=== PATIENT | female | born 1940 | race Caucasian/White ===

== ENCOUNTER 2021-08-07 13:07 | Inpatient (IN) ==
[2021-08-07] MEDS ORDERED: ACETAMINOPHEN 325 MG TABLET PO PRN (13:23)
[2021-08-07] MEDS ORDERED: ONDANSETRON 4 MG/2 ML VIAL IV PRN (13:23)
[2021-08-07] MEDS ORDERED: MAGNESIUM HYDROXIDE SUSP 30 ML UDCUP PO PRN (13:25)
[2021-08-07] MEDS ORDERED: BENZONATATE 100 MG CAPSULE PO PRN (13:30)
[2021-08-07] MEDS ORDERED: ZALEPLON 5 MG CAPSULE PO PRN (13:30)
[2021-08-07] MEDS ORDERED: FUROSEMIDE 20 MG/2 ML VIAL IV SCH (16:00)
[2021-08-07] MEDS: ALBUTEROL/IPRATROPIUM 3 ML NEB RESP TX SCH ×3 (17:49→23:23)
[2021-08-07 17:57] LABS: Basophils % 0.5 % (0.0-0.8); Eosinophils % 0.2 % (0.00-10.9); Hematocrit 44.5 VOL% (35.7-47.0); Hemoglobin 13.6 GM/DL (12.0-16.0); Immature Granulocytes % 0.3 %; Immature Granulocytes Absolute 0.02 #; Lymphocytes % 16.9 % (21.3-54.2); Mean Corpuscular HGB Conc 30.6 GM/DL (32-36); Mean Corpuscular Volume 90.6 FL (87-102); Mean Platelet Volume 9.6 FL (9.6-12.0); Monocytes % 8.9 % (1.7-12.7); Neutrophils % 73.2 % (38.7-73.9); Platelet Count 204 T/CUMM (130-400); Red Blood Count 4.91 MC/CUMM (3.8-5.5); Red Cell Distribution Width 16.5 % (9.3-17.3); White Blood Count 6.1 T/CUMM (4-12)
[2021-08-07 18:12] LABS: Bilirubin,Total 1.4 MG/DL (0.20-1.00); Calcium 8.9 MG/DL (8.5-10.1); Osmolality,Calculated 266.5 MOS/KG (273-304); Potassium 3.9 MMOL/L (3.5-5.1); Total Protein 7.1 G/DL (6.4-8.2)
[2021-08-07] MEDS: DOCUSATE SODIUM 100 MG CAPSULE PO SCH (20:55)
[2021-08-07] MEDS: methylPREDNISolone SOD SUC 40 MG/1 ML VIAL IV SCH (20:56)
[2021-08-07] MEDS: FUROSEMIDE 20 MG/2 ML VIAL IV SCH (20:57)
[2021-08-07] MEDS: ENOXAPARIN 40 MG/0.4 ML SYRINGE SUBCUT SCH (20:57)
[2021-08-07] MEDS: DEXTROSE 5% NACL 0.45% 1,000 ML IV SCH (21:01)
[2021-08-07] MEDS: BUDESONIDE/FORMOTEROL 160-4.5 INHALER 6 GM INH SCH (21:01)
[2021-08-07] MEDS: BISOPROLOL 5 MG TABLET PO SCH (21:39)
[2021-08-08] MEDS: ALBUTEROL/IPRATROPIUM 3 ML NEB RESP TX SCH ×5 (04:00→19:27)
[2021-08-08 04:58] LABS: Basophils % 0.2 % (0.0-0.8); Hematocrit 39.9 VOL% (35.7-47.0); Hemoglobin 12.8 GM/DL (12.0-16.0); Immature Granulocytes % 0.4 %; Immature Granulocytes Absolute 0.02 #; Lymphocytes # 0.6 10*3/uL (1.4-4.0); Lymphocytes % 12.7 % (21.3-54.2); Mean Corpuscular HGB Conc 32.1 GM/DL (32-36); Mean Corpuscular Volume 87.3 FL (87-102); Mean Platelet Volume 9.7 FL (9.6-12.0); Monocytes % 2.7 % (1.7-12.7); Platelet Count 186 T/CUMM (130-400); Red Blood Count 4.57 MC/CUMM (3.8-5.5); Red Cell Distribution Width 16.2 % (9.3-17.3); White Blood Count 4.5 T/CUMM (4-12)
[2021-08-08 05:31] LABS: Albumin 2.7 G/DL (3.4-5.0); Bilirubin,Total 1.3 MG/DL (0.20-1.00); Calcium 8.5 MG/DL (8.5-10.1); Osmolality,Calculated 270.4 MOS/KG (273-304); Potassium 4.1 MMOL/L (3.5-5.1); Risk Ratio 3.75; Total Protein 6.4 G/DL (6.4-8.2)
[2021-08-08 05:55] LABS: Bacteria,Urine Occasional /HPF (Few); Bilirubin,Urine Negative (Negative); Blood, Urine Negative (Negative); Glucose,Urine (UA) Negative (Negative); Hyaline Casts,Urine 1 /LPF (0-3); Ketones,Urine Negative (Negative); Nitrite,Urine Negative (Negative); Protein,Urine Negative; RBC,Urine 1 /HPF (0-4); Squamous Epithelial Cell,Urine Occasional /HPF (0-10); Urine Appearance CLEAR (Clear); Urine Color Yellow (Yellow); Urine Specific Gravity 1.028 (1.001-1.035); Urine Urobilinogen < 2.0 EU/DL (0.2-1.0)
[2021-08-08] MEDS: methylPREDNISolone SOD SUC 40 MG/1 ML VIAL IV SCH ×3 (06:04→20:26)
[2021-08-08] MEDS: PANTOPRAZOLE 40 MG TABLET PO SCH (08:19)
[2021-08-08] MEDS: PROPRANOLOL 40 MG TABLET PO SCH (08:19)
[2021-08-08] MEDS: DOCUSATE SODIUM 100 MG CAPSULE PO SCH ×2 (08:19→20:25)
[2021-08-08] MEDS: CLOPIDOGREL 75 MG TABLET PO SCH (08:19)
[2021-08-08] MEDS: SPIRONOLACTONE 25 MG TABLET PO SCH ×3 (08:20→20:28)
[2021-08-08] MEDS: BUDESONIDE/FORMOTEROL 160-4.5 INHALER 6 GM INH SCH ×2 (08:24→20:29)
[2021-08-08] MEDS: FUROSEMIDE 20 MG/2 ML VIAL IV SCH (12:39)
[2021-08-08] MEDS: FUROSEMIDE 40 MG/4 ML VIAL IV SCH (16:27)
[2021-08-08] MEDS: BISOPROLOL 5 MG TABLET PO SCH (20:26)
[2021-08-08] MEDS: ENOXAPARIN 40 MG/0.4 ML SYRINGE SUBCUT SCH (20:26)
[2021-08-09] MEDS: ALBUTEROL/IPRATROPIUM 3 ML NEB RESP TX SCH ×8 (03:15→23:30)
[2021-08-09 05:23] LABS: Hematocrit 35.2 VOL% (35.7-47.0); Hemoglobin 11.3 GM/DL (12.0-16.0); Immature Granulocytes % 0.6 %; Immature Granulocytes Absolute 0.04 #; Lymphocytes # 0.6 10*3/uL (1.4-4.0); Lymphocytes % 8.2 % (21.3-54.2); Mean Corpuscular HGB Conc 32.1 GM/DL (32-36); Mean Corpuscular Volume 86.1 FL (87-102); Mean Platelet Volume 9.9 FL (9.6-12.0); Monocytes % 4.9 % (1.7-12.7); Neutrophils % 86.3 % (38.7-73.9); Platelet Count 183 T/CUMM (130-400); Red Blood Count 4.09 MC/CUMM (3.8-5.5); Red Cell Distribution Width 16.1 % (9.3-17.3); White Blood Count 6.8 T/CUMM (4-12)
[2021-08-09 05:52] LABS: Albumin 2.7 G/DL (3.4-5.0); Bilirubin,Total 1.1 MG/DL (0.20-1.00); Calcium 8.4 MG/DL (8.5-10.1); Osmolality,Calculated 265.7 MOS/KG (273-304); Potassium 3.8 MMOL/L (3.5-5.1); Total Protein 6.3 G/DL (6.4-8.2)
[2021-08-09] MEDS: methylPREDNISolone SOD SUC 40 MG/1 ML VIAL IV SCH ×3 (06:44→21:16)
[2021-08-09] MEDS: FUROSEMIDE 40 MG/4 ML VIAL IV SCH ×2 (09:27→15:56)
[2021-08-09] MEDS: BUDESONIDE/FORMOTEROL 160-4.5 INHALER 6 GM INH SCH ×2 (09:29→21:16)
[2021-08-09] MEDS: PANTOPRAZOLE 40 MG TABLET PO SCH (09:29)
[2021-08-09] MEDS: SPIRONOLACTONE 25 MG TABLET PO SCH ×3 (09:29→21:16)
[2021-08-09] MEDS: PROPRANOLOL 40 MG TABLET PO SCH (09:29)
[2021-08-09] MEDS: CLOPIDOGREL 75 MG TABLET PO SCH (09:29)
[2021-08-09] MEDS: TAMSULOSIN 0.4 MG CAPSULE PO SCH (09:29)
[2021-08-09] MEDS: DOCUSATE SODIUM 100 MG CAPSULE PO SCH ×2 (09:29→21:18)
[2021-08-09] MEDS: ENOXAPARIN 60 MG/0.6 ML SYRINGE SUBCUT SCH ×2 (09:38→21:17)
[2021-08-09] MEDS: NICOTINE 21 MG/24 HR PATCH TRANSDERM SCH (12:03)
[2021-08-09] MEDS: DEXTROSE 5% NACL 0.45% 1,000 ML IV SCH (18:34)
[2021-08-09] MEDS: BISOPROLOL 5 MG TABLET PO SCH (21:16)
[2021-08-10] MEDS: ALBUTEROL/IPRATROPIUM 3 ML NEB RESP TX SCH ×5 (04:01→20:48)
[2021-08-10] MEDS: methylPREDNISolone SOD SUC 40 MG/1 ML VIAL IV SCH ×3 (04:52→21:06)
[2021-08-10] MEDS: NICOTINE 21 MG/24 HR PATCH TRANSDERM SCH ×2 (04:53→09:17)
[2021-08-10 05:45] LABS: Hematocrit 36.4 VOL% (35.7-47.0); Hemoglobin 11.6 GM/DL (12.0-16.0); Immature Granulocytes % 0.8 %; Immature Granulocytes Absolute 0.06 #; Lymphocytes # 0.4 10*3/uL (1.4-4.0); Lymphocytes % 5.5 % (21.3-54.2); Mean Corpuscular HGB Conc 31.9 GM/DL (32-36); Mean Corpuscular Volume 86.5 FL (87-102); Monocytes % 4.4 % (1.7-12.7); Neutrophils % 89.3 % (38.7-73.9); Platelet Count 202 T/CUMM (130-400); Red Blood Count 4.21 MC/CUMM (3.8-5.5); Red Cell Distribution Width 16.2 % (9.3-17.3); White Blood Count 7.8 T/CUMM (4-12)
[2021-08-10 06:06] LABS: Calcium 8.4 MG/DL (8.5-10.1); Osmolality,Calculated 268.5 MOS/KG (273-304); Potassium 3.4 MMOL/L (3.5-5.1)
[2021-08-10] MEDS: FUROSEMIDE 40 MG/4 ML VIAL IV SCH ×2 (08:25→16:33)
[2021-08-10] MEDS: PANTOPRAZOLE 40 MG TABLET PO SCH (08:30)
[2021-08-10] MEDS: CLOPIDOGREL 75 MG TABLET PO SCH (08:30)
[2021-08-10] MEDS: DOCUSATE SODIUM 100 MG CAPSULE PO SCH ×2 (08:30→21:07)
[2021-08-10] MEDS: ENOXAPARIN 60 MG/0.6 ML SYRINGE SUBCUT SCH ×2 (08:30→21:06)
[2021-08-10] MEDS: PROPRANOLOL 40 MG TABLET PO SCH (08:30)
[2021-08-10] MEDS: SPIRONOLACTONE 25 MG TABLET PO SCH ×3 (08:30→21:05)
[2021-08-10] MEDS: BUDESONIDE/FORMOTEROL 160-4.5 INHALER 6 GM INH SCH ×2 (08:38→21:07)
[2021-08-10] MEDS: TAMSULOSIN 0.4 MG CAPSULE PO SCH (09:19)
[2021-08-10] MEDS ORDERED: LACTULOSE 20 GM/30 ML UDCUP PO ONE (14:08)
[2021-08-10] MEDS: NYSTATIN 500,000 UNIT/5 ML UDCUP SWISH/SWAL SCH ×2 (14:48→21:06)
[2021-08-10] MEDS ORDERED: POTASSIUM CHLORIDE 20 MEQ TABLET PO ONE (17:21)
[2021-08-10] MEDS: BISOPROLOL 5 MG TABLET PO SCH (18:08)
[2021-08-10] MEDS: POTASSIUM CHLORIDE 20 MEQ TABLET PO PRN (21:05)
[2021-08-10] MEDS: LACTULOSE 20 GM/30 ML UDCUP PO SCH (21:05)
[2021-08-11] MEDS: ALBUTEROL/IPRATROPIUM 3 ML NEB RESP TX SCH ×7 (00:35→23:05)
[2021-08-11] MEDS: methylPREDNISolone SOD SUC 40 MG/1 ML VIAL IV SCH ×3 (05:25→20:39)
[2021-08-11 06:27] LABS: Basophils % 0.1 % (0.0-0.8); Hemoglobin 11.9 GM/DL (12.0-16.0); Immature Granulocytes % 0.5 %; Immature Granulocytes Absolute 0.04 #; Lymphocytes # 0.4 10*3/uL (1.4-4.0); Lymphocytes % 4.9 % (21.3-54.2); Mean Corpuscular HGB Conc 32.2 GM/DL (32-36); Mean Corpuscular Volume 88.3 FL (87-102); Mean Platelet Volume 9.5 FL (9.6-12.0); Monocytes % 6.2 % (1.7-12.7); Neutrophils % 88.3 % (38.7-73.9); Platelet Count 194 T/CUMM (130-400); Red Blood Count 4.19 MC/CUMM (3.8-5.5); White Blood Count 7.4 T/CUMM (4-12)
[2021-08-11 06:53] LABS: Calcium 8.5 MG/DL (8.5-10.1); Osmolality,Calculated 273.4 MOS/KG (273-304); Potassium 3.5 MMOL/L (3.5-5.1)
[2021-08-11 07:32] LABS: Anisocytosis 2+; Lymphocytes 5 % (20-55); Platelet Estimate Normal; Segmented Neutrophils 88 % (50-85); Total Cells Counted 100
[2021-08-11 07:34] LABS: Poikilocytosis Slight
[2021-08-11] MEDS: FUROSEMIDE 40 MG/4 ML VIAL IV SCH ×2 (09:01→15:35)
[2021-08-11] MEDS: PANTOPRAZOLE 40 MG TABLET PO SCH (09:03)
[2021-08-11] MEDS: SPIRONOLACTONE 25 MG TABLET PO SCH ×3 (09:03→20:37)
[2021-08-11] MEDS: TAMSULOSIN 0.4 MG CAPSULE PO SCH (09:03)
[2021-08-11] MEDS: PROPRANOLOL 40 MG TABLET PO SCH (09:03)
[2021-08-11] MEDS: POTASSIUM CHLORIDE 20 MEQ TABLET PO PRN ×2 (09:03→13:12)
[2021-08-11] MEDS: CLOPIDOGREL 75 MG TABLET PO SCH (09:03)
[2021-08-11] MEDS: LACTULOSE 20 GM/30 ML UDCUP PO SCH ×2 (09:04→21:56)
[2021-08-11] MEDS: ENOXAPARIN 60 MG/0.6 ML SYRINGE SUBCUT SCH ×2 (09:04→20:39)
[2021-08-11] MEDS: NYSTATIN 500,000 UNIT/5 ML UDCUP SWISH/SWAL SCH ×4 (09:04→20:38)
[2021-08-11] MEDS: BUDESONIDE/FORMOTEROL 160-4.5 INHALER 6 GM INH SCH ×2 (09:05→21:56)
[2021-08-11] MEDS: DOCUSATE SODIUM 100 MG CAPSULE PO SCH ×2 (09:06→21:56)
[2021-08-11] MEDS: NICOTINE 21 MG/24 HR PATCH TRANSDERM SCH (09:06)
[2021-08-11] MEDS: BISOPROLOL 5 MG TABLET PO SCH (18:14)
[2021-08-12] MEDS: ALBUTEROL/IPRATROPIUM 3 ML NEB RESP TX SCH ×7 (03:05→23:10)
[2021-08-12] MEDS: methylPREDNISolone SOD SUC 40 MG/1 ML VIAL IV SCH ×3 (04:23→21:16)
[2021-08-12 05:22] LABS: Basophils % 0.1 % (0.0-0.8); Hematocrit 38.1 VOL% (35.7-47.0); Hemoglobin 12.1 GM/DL (12.0-16.0); Immature Granulocytes % 0.7 %; Immature Granulocytes Absolute 0.05 #; Lymphocytes # 0.4 10*3/uL (1.4-4.0); Lymphocytes % 6.3 % (21.3-54.2); Mean Corpuscular HGB Conc 31.8 GM/DL (32-36); Mean Corpuscular Volume 87.6 FL (87-102); Monocytes % 6.8 % (1.7-12.7); Neutrophils % 86.1 % (38.7-73.9); Platelet Count 188 T/CUMM (130-400); Red Blood Count 4.35 MC/CUMM (3.8-5.5); Red Cell Distribution Width 15.9 % (9.3-17.3)
[2021-08-12 05:39] LABS: Calcium 8.8 MG/DL (8.5-10.1); Osmolality,Calculated 268.7 MOS/KG (273-304); Potassium 4.3 MMOL/L (3.5-5.1)
[2021-08-12] MEDS: FUROSEMIDE 40 MG/4 ML VIAL IV SCH ×2 (11:01→18:39)
[2021-08-12] MEDS: ENOXAPARIN 60 MG/0.6 ML SYRINGE SUBCUT SCH ×2 (11:02→21:16)
[2021-08-12] MEDS: TAMSULOSIN 0.4 MG CAPSULE PO SCH (11:02)
[2021-08-12] MEDS: NICOTINE 21 MG/24 HR PATCH TRANSDERM SCH (11:02)
[2021-08-12] MEDS: PROPRANOLOL 40 MG TABLET PO SCH (11:02)
[2021-08-12] MEDS: CLOPIDOGREL 75 MG TABLET PO SCH (11:03)
[2021-08-12] MEDS: NYSTATIN 500,000 UNIT/5 ML UDCUP SWISH/SWAL SCH ×4 (11:03→21:15)
[2021-08-12] MEDS: SPIRONOLACTONE 25 MG TABLET PO SCH ×3 (11:03→21:15)
[2021-08-12] MEDS: PANTOPRAZOLE 40 MG TABLET PO SCH (11:04)
[2021-08-12] MEDS: LACTULOSE 20 GM/30 ML UDCUP PO SCH ×2 (11:43→21:44)
[2021-08-12] MEDS: DOCUSATE SODIUM 100 MG CAPSULE PO SCH ×2 (11:43→21:44)
[2021-08-12] MEDS: BUDESONIDE/FORMOTEROL 160-4.5 INHALER 6 GM INH SCH ×2 (11:43→21:44)
[2021-08-12] MEDS: BISOPROLOL 5 MG TABLET PO SCH (21:15)
[2021-08-13] MEDS: ALBUTEROL/IPRATROPIUM 3 ML NEB RESP TX SCH ×2 (03:08→07:18)
[2021-08-13] MEDS: methylPREDNISolone SOD SUC 40 MG/1 ML VIAL IV SCH (04:10)
[2021-08-13 05:15] LABS: Basophils % 0.1 % (0.0-0.8); Hematocrit 36.6 VOL% (35.7-47.0); Hemoglobin 11.8 GM/DL (12.0-16.0); Immature Granulocytes % 0.6 %; Immature Granulocytes Absolute 0.04 #; Lymphocytes # 0.5 10*3/uL (1.4-4.0); Lymphocytes % 7.3 % (21.3-54.2); Mean Corpuscular HGB Conc 32.2 GM/DL (32-36); Mean Corpuscular Volume 87.6 FL (87-102); Mean Platelet Volume 9.8 FL (9.6-12.0); Monocytes % 5.7 % (1.7-12.7); Neutrophils % 86.3 % (38.7-73.9); Platelet Count 187 T/CUMM (130-400); Red Blood Count 4.18 MC/CUMM (3.8-5.5); Red Cell Distribution Width 15.9 % (9.3-17.3); White Blood Count 7.1 T/CUMM (4-12)
[2021-08-13 05:42] LABS: Calcium 8.3 MG/DL (8.5-10.1); Osmolality,Calculated 270.5 MOS/KG (273-304); Potassium 3.6 MMOL/L (3.5-5.1)
[2021-08-13] MEDS ORDERED: CHOLECALCIFEROL 1,000 UNIT TABLET PO SCH (09:00)
[2021-08-13] MEDS ORDERED: TAMSULOSIN 0.4 MG CAPSULE PO SCH (09:00)
[2021-08-13] MEDS: PROPRANOLOL 40 MG TABLET PO SCH (09:19)
[2021-08-13] MEDS: NICOTINE 21 MG/24 HR PATCH TRANSDERM SCH (09:19)
[2021-08-13] MEDS: SPIRONOLACTONE 25 MG TABLET PO SCH (09:19)
[2021-08-13] MEDS: CLOPIDOGREL 75 MG TABLET PO SCH (09:20)
[2021-08-13] MEDS: NYSTATIN 500,000 UNIT/5 ML UDCUP SWISH/SWAL SCH (09:20)
[2021-08-13] MEDS: FUROSEMIDE 40 MG/4 ML VIAL IV SCH (09:20)
[2021-08-13] MEDS: ENOXAPARIN 60 MG/0.6 ML SYRINGE SUBCUT SCH (09:20)
[2021-08-13] MEDS: PANTOPRAZOLE 40 MG TABLET PO SCH (09:20)
[2021-08-13] MEDS: LACTULOSE 20 GM/30 ML UDCUP PO SCH (09:28)
[2021-08-13] MEDS: DOCUSATE SODIUM 100 MG CAPSULE PO SCH (09:28)
[2021-08-13] MEDS: BUDESONIDE/FORMOTEROL 160-4.5 INHALER 6 GM INH SCH (09:28)
[2021-08-13 10:37] VITALS: BP 120/77
== END 2021-08-13 11:09 | disposition home or self-care (01) | DRG 190 ==
LOC: N.4E 15:29
PROVIDERS: ADMIT Family Medicine; ATTEND Family Medicine

== ENCOUNTER 2021-09-26 08:44 | Inpatient (IN) ==
[2021-09-26] MEDS ORDERED: ONDANSETRON 4 MG/2 ML VIAL IV PRN (13:20)
[2021-09-26] MEDS ORDERED: ACETAMINOPHEN 325 MG TABLET PO PRN (13:20)
[2021-09-26] MEDS ORDERED: MAGNESIUM HYDROXIDE SUSP 30 ML UDCUP PO PRN (13:24)
[2021-09-26 15:36] LABS: Bacteria,Urine Occasional /HPF (Few); Bilirubin,Urine Negative (Negative); Blood, Urine Negative (Negative); Glucose,Urine (UA) Negative (Negative); Hyaline Casts,Urine 1 /LPF (0-3); Ketones,Urine Negative (Negative); Mucus,Urine Occasional /LPF (Occasional); Nitrite,Urine Negative (Negative); Protein,Urine 100 MG/DL; RBC,Urine 1 /HPF (0-4); Squamous Epithelial Cell,Urine Occasional /HPF (0-10); Urine Appearance CLEAR (Clear); Urine Color Amber (Yellow); Urine Specific Gravity 1.023 (1.001-1.035)
[2021-09-26 15:43] LABS: Basophils % 0.4 % (0.0-0.8); Eosinophils % 0.2 % (0.00-10.9); Hematocrit 39.6 VOL% (35.7-47.0); Hemoglobin 12.1 GM/DL (12.0-16.0); Immature Granulocytes % 0.7 %; Immature Granulocytes Absolute 0.03 #; Lymphocytes # 0.8 10*3/uL (1.4-4.0); Lymphocytes % 17.2 % (21.3-54.2); Mean Corpuscular HGB Conc 30.6 GM/DL (32-36); Mean Platelet Volume 9.3 FL (9.6-12.0); Monocytes % 11.1 % (1.7-12.7); Neutrophils % 70.4 % (38.7-73.9); Platelet Count 214 T/CUMM (130-400); Red Blood Count 4.55 MC/CUMM (3.8-5.5); Red Cell Distribution Width 17.3 % (9.3-17.3); White Blood Count 4.6 T/CUMM (4-12)
[2021-09-26 16:06] LABS: Albumin 3.1 G/DL (3.4-5.0); Bilirubin,Total 1.6 MG/DL (0.20-1.00); Calcium 8.7 MG/DL (8.5-10.1); Osmolality,Calculated 268.2 MOS/KG (273-304); Potassium 4.2 MMOL/L (3.5-5.1)
[2021-09-26] MEDS: PANTOPRAZOLE 40 MG TABLET PO SCH (16:23)
[2021-09-26] MEDS: SPIRONOLACTONE 25 MG TABLET PO SCH ×2 (16:23→22:27)
[2021-09-26 16:49] LABS: Hepatitis B Core IgM Quant 0.06 Index; Hepatitis B Surface Ag Quant < 0.10 Index; Hepatitis B Surface Ag Result Non-Reactive (NonReactive); Hepatitis C Virus Ab Quant 0.04 Index; Hepatitis C Virus Ab Result Non-Reactive (NonReactive)
[2021-09-26] MEDS: DEXTROSE 5% NACL 0.45% 1,000 ML IV SCH (17:17)
[2021-09-26] MEDS: ALBUTEROL/IPRATROPIUM 3 ML NEB RESP TX SCH (20:34)
[2021-09-26] MEDS: DOCUSATE SODIUM 100 MG CAPSULE PO SCH (22:27)
[2021-09-26] MEDS: APIXABAN 2.5 MG TABLET PO SCH (22:27)
[2021-09-26] MEDS: TAMSULOSIN 0.4 MG CAPSULE PO SCH (22:27)
[2021-09-26] MEDS: PROPRANOLOL 40 MG TABLET PO SCH (22:28)
[2021-09-26] MEDS: BUDESONIDE/FORMOTEROL 160-4.5 INHALER 6 GM INH SCH (22:30)
[2021-09-27] MEDS: ALBUTEROL/IPRATROPIUM 3 ML NEB RESP TX SCH ×4 (01:31→19:59)
[2021-09-27] MEDS: DEXTROSE 5% NACL 0.45% 1,000 ML IV SCH ×2 (03:55→15:10)
[2021-09-27 06:40] LABS: Calcium 8.2 MG/DL (8.5-10.1); Osmolality,Calculated 263.5 MOS/KG (273-304); Potassium 4.1 MMOL/L (3.5-5.1)
[2021-09-27] MEDS: BUDESONIDE/FORMOTEROL 160-4.5 INHALER 6 GM INH SCH ×3 (06:45→22:07)
[2021-09-27] MEDS: SPIRONOLACTONE 25 MG TABLET PO SCH (06:45)
[2021-09-27] MEDS ORDERED: ZALEPLON 5 MG CAPSULE PO PRN (07:47)
[2021-09-27] MEDS ORDERED: BISOPROLOL 5 MG TABLET PO SCH (09:00)
[2021-09-27] MEDS ORDERED: ASPIRIN EC 81 MG TABLET PO SCH (09:00)
[2021-09-27] MEDS: PANTOPRAZOLE 40 MG TABLET PO SCH (09:26)
[2021-09-27] MEDS: DOCUSATE SODIUM 100 MG CAPSULE PO SCH ×3 (09:27→22:07)
[2021-09-27] MEDS: ATORVASTATIN 40 MG TABLET PO SCH (09:27)
[2021-09-27] MEDS: CLOPIDOGREL 75 MG TABLET PO SCH (09:27)
[2021-09-27] MEDS: TAMSULOSIN 0.4 MG CAPSULE PO SCH ×2 (09:28→22:02)
[2021-09-27] MEDS: SPIRONOLACTONE 50 MG TABLET PO SCH ×4 (09:28→22:17)
[2021-09-27] MEDS: PROPRANOLOL 40 MG TABLET PO SCH ×3 (09:28→22:18)
[2021-09-27] MEDS: APIXABAN 2.5 MG TABLET PO SCH ×2 (09:29→22:02)
[2021-09-28] MEDS: ALBUTEROL/IPRATROPIUM 3 ML NEB RESP TX SCH ×4 (00:15→19:55)
[2021-09-28 06:05] LABS: Basophils % 0.6 % (0.0-0.8); Eosinophils % 0.6 % (0.00-10.9); Hematocrit 34.9 VOL% (35.7-47.0); Hemoglobin 10.9 GM/DL (12.0-16.0); Immature Granulocytes % 0.8 %; Immature Granulocytes Absolute 0.04 #; Lymphocytes # 1.2 10*3/uL (1.4-4.0); Lymphocytes % 22.7 % (21.3-54.2); Mean Corpuscular HGB Conc 31.2 GM/DL (32-36); Mean Corpuscular Volume 85.7 FL (87-102); Mean Platelet Volume 9.2 FL (9.6-12.0); Monocytes % 10.4 % (1.7-12.7); Neutrophils % 64.9 % (38.7-73.9); Platelet Count 184 T/CUMM (130-400); Red Blood Count 4.07 MC/CUMM (3.8-5.5); Red Cell Distribution Width 17.3 % (9.3-17.3); White Blood Count 5.2 T/CUMM (4-12)
[2021-09-28 06:38] LABS: Calcium 8.5 MG/DL (8.5-10.1); Osmolality,Calculated 261.5 MOS/KG (273-304); Potassium 4.3 MMOL/L (3.5-5.1)
[2021-09-28] MEDS: DOCUSATE SODIUM 100 MG CAPSULE PO SCH ×2 (09:52→21:22)
[2021-09-28] MEDS: PANTOPRAZOLE 40 MG TABLET PO SCH (09:55)
[2021-09-28] MEDS: TAMSULOSIN 0.4 MG CAPSULE PO SCH ×2 (09:55→21:23)
[2021-09-28] MEDS: PROPRANOLOL 40 MG TABLET PO SCH ×3 (09:55→21:23)
[2021-09-28] MEDS: DEXTROSE 5% NACL 0.45% 1,000 ML IV SCH (09:55)
[2021-09-28] MEDS: SPIRONOLACTONE 50 MG TABLET PO SCH ×3 (09:55→21:28)
[2021-09-28] MEDS: BUDESONIDE/FORMOTEROL 160-4.5 INHALER 6 GM INH SCH ×2 (09:56→21:26)
[2021-09-28] MEDS: CLOPIDOGREL 75 MG TABLET PO SCH ×2 (10:25→21:25)
[2021-09-28] MEDS: ATORVASTATIN 40 MG TABLET PO SCH ×2 (10:25→21:25)
[2021-09-28] MEDS: APIXABAN 2.5 MG TABLET PO SCH (11:32)
[2021-09-28] MEDS: FUROSEMIDE 40 MG/4 ML VIAL IV SCH (18:20)
[2021-09-29] MEDS: ALBUTEROL/IPRATROPIUM 3 ML NEB RESP TX SCH ×4 (00:17→19:51)
[2021-09-29 04:49] LABS: Basophils % 0.4 % (0.0-0.8); Eosinophils % 0.4 % (0.00-10.9); Hematocrit 35.3 VOL% (35.7-47.0); Hemoglobin 10.9 GM/DL (12.0-16.0); Immature Granulocytes % 0.4 %; Immature Granulocytes Absolute 0.02 #; Lymphocytes # 1.2 10*3/uL (1.4-4.0); Lymphocytes % 20.8 % (21.3-54.2); Mean Corpuscular HGB Conc 30.9 GM/DL (32-36); Mean Corpuscular Volume 84.7 FL (87-102); Mean Platelet Volume 9.4 FL (9.6-12.0); Monocytes % 11.8 % (1.7-12.7); Neutrophils % 66.2 % (38.7-73.9); Platelet Count 201 T/CUMM (130-400); Red Blood Count 4.17 MC/CUMM (3.8-5.5); Red Cell Distribution Width 17.2 % (9.3-17.3); White Blood Count 5.5 T/CUMM (4-12)
[2021-09-29 04:58] LABS: Calcium 8.6 MG/DL (8.5-10.1); Osmolality,Calculated 258.8 MOS/KG (273-304); Potassium 4.1 MMOL/L (3.5-5.1)
[2021-09-29] MEDS: FUROSEMIDE 40 MG/4 ML VIAL IV SCH (09:17)
[2021-09-29] MEDS: DOCUSATE SODIUM 100 MG CAPSULE PO SCH ×2 (11:30→21:14)
[2021-09-29] MEDS: TAMSULOSIN 0.4 MG CAPSULE PO SCH ×2 (11:30→21:15)
[2021-09-29] MEDS: SPIRONOLACTONE 50 MG TABLET PO SCH ×2 (11:30→16:14)
[2021-09-29] MEDS: PANTOPRAZOLE 40 MG TABLET PO SCH (11:31)
[2021-09-29] MEDS: BUDESONIDE/FORMOTEROL 160-4.5 INHALER 6 GM INH SCH (11:31)
[2021-09-29] MEDS: PROPRANOLOL 40 MG TABLET PO SCH ×2 (11:31→16:14)
[2021-09-29] MEDS: ATORVASTATIN 40 MG TABLET PO SCH (22:56)
[2021-09-30] MEDS: SPIRONOLACTONE 50 MG TABLET PO SCH ×4 (01:22→20:56)
[2021-09-30] MEDS: CLOPIDOGREL 75 MG TABLET PO SCH ×2 (01:24→20:56)
[2021-09-30] MEDS: PROPRANOLOL 40 MG TABLET PO SCH ×4 (01:24→20:56)
[2021-09-30] MEDS: ALBUTEROL/IPRATROPIUM 3 ML NEB RESP TX SCH ×4 (02:18→19:42)
[2021-09-30] MEDS: BUDESONIDE/FORMOTEROL 160-4.5 INHALER 6 GM INH SCH ×3 (05:28→21:05)
[2021-09-30 06:12] LABS: Basophils % 0.6 % (0.0-0.8); Eosinophils % 0.8 % (0.00-10.9); Hematocrit 34.6 VOL% (35.7-47.0); Hemoglobin 10.6 GM/DL (12.0-16.0); Immature Granulocytes Absolute 0.05 #; Lymphocytes % 18.5 % (21.3-54.2); Mean Corpuscular HGB Conc 30.6 GM/DL (32-36); Mean Platelet Volume 9.3 FL (9.6-12.0); Monocytes % 11.7 % (1.7-12.7); Neutrophils % 67.4 % (38.7-73.9); Platelet Count 178 T/CUMM (130-400); Red Blood Count 4.07 MC/CUMM (3.8-5.5); Red Cell Distribution Width 17.3 % (9.3-17.3); White Blood Count 5.2 T/CUMM (4-12)
[2021-09-30 06:21] LABS: INR 1.2; PT Patient Result 13.5 SECS (10.5-12.0)
[2021-09-30 06:42] LABS: Albumin 2.7 G/DL (3.4-5.0); Bilirubin,Direct 0.5 MG/DL (0.0-0.20); Bilirubin,Indirect 1.3 MG/DL (0.0-1.0); Bilirubin,Total 1.8 MG/DL (0.20-1.00); Calcium 8.6 MG/DL (8.5-10.1); Osmolality,Calculated 263.5 MOS/KG (273-304); Potassium 3.8 MMOL/L (3.5-5.1); Total Protein 6.2 G/DL (6.4-8.2)
[2021-09-30] MEDS: TAMSULOSIN 0.4 MG CAPSULE PO SCH ×2 (08:50→20:56)
[2021-09-30] MEDS: DOCUSATE SODIUM 100 MG CAPSULE PO SCH ×2 (08:50→21:05)
[2021-09-30] MEDS: PANTOPRAZOLE 40 MG TABLET PO SCH (08:51)
[2021-09-30] MEDS: FUROSEMIDE 40 MG/4 ML VIAL IV SCH (08:56)
[2021-09-30] MEDS: ATORVASTATIN 40 MG TABLET PO SCH (20:56)
[2021-10-01] MEDS: ALBUTEROL/IPRATROPIUM 3 ML NEB RESP TX SCH ×4 (00:30→19:18)
[2021-10-01 06:13] LABS: Basophils % 0.6 % (0.0-0.8); Eosinophils % 0.6 % (0.00-10.9); Immature Granulocytes % 0.6 %; Immature Granulocytes Absolute 0.03 #; Lymphocytes # 1.1 10*3/uL (1.4-4.0); Lymphocytes % 21.6 % (21.3-54.2); Mean Corpuscular HGB Conc 31.4 GM/DL (32-36); Mean Platelet Volume 9.4 FL (9.6-12.0); Monocytes % 12.6 % (1.7-12.7); Platelet Count 190 T/CUMM (130-400); Red Blood Count 4.12 MC/CUMM (3.8-5.5); Red Cell Distribution Width 17.5 % (9.3-17.3); White Blood Count 5.2 T/CUMM (4-12)
[2021-10-01 06:42] LABS: Calcium 8.5 MG/DL (8.5-10.1); Osmolality,Calculated 267.2 MOS/KG (273-304); Potassium 4.3 MMOL/L (3.5-5.1)
[2021-10-01] MEDS: SPIRONOLACTONE 50 MG TABLET PO SCH ×3 (09:20→21:29)
[2021-10-01] MEDS: PROPRANOLOL 40 MG TABLET PO SCH ×3 (09:21→21:29)
[2021-10-01] MEDS: PANTOPRAZOLE 40 MG TABLET PO SCH (09:21)
[2021-10-01] MEDS: DOCUSATE SODIUM 100 MG CAPSULE PO SCH ×2 (09:21→23:14)
[2021-10-01] MEDS: FUROSEMIDE 40 MG/4 ML VIAL IV SCH (09:21)
[2021-10-01] MEDS: BUDESONIDE/FORMOTEROL 160-4.5 INHALER 6 GM INH SCH ×2 (12:26→23:14)
[2021-10-01] MEDS: TAMSULOSIN 0.4 MG CAPSULE PO SCH (21:29)
[2021-10-01] MEDS: CLOPIDOGREL 75 MG TABLET PO SCH (23:14)
[2021-10-01] MEDS: ATORVASTATIN 40 MG TABLET PO SCH (23:14)
[2021-10-02] MEDS: ALBUTEROL/IPRATROPIUM 3 ML NEB RESP TX SCH ×4 (00:50→18:52)
[2021-10-02 06:37] LABS: Basophils % 0.6 % (0.0-0.8); Eosinophils # 0.1 10*3/uL (0.0-0.87); Hematocrit 35.7 VOL% (35.7-47.0); Immature Granulocytes % 0.6 %; Immature Granulocytes Absolute 0.03 #; Lymphocytes # 1.3 10*3/uL (1.4-4.0); Lymphocytes % 25.6 % (21.3-54.2); Mean Corpuscular HGB Conc 30.8 GM/DL (32-36); Mean Corpuscular Volume 86.4 FL (87-102); Mean Platelet Volume 9.7 FL (9.6-12.0); Monocytes % 12.3 % (1.7-12.7); Neutrophils % 59.9 % (38.7-73.9); Platelet Count 177 T/CUMM (130-400); Red Blood Count 4.13 MC/CUMM (3.8-5.5); Red Cell Distribution Width 17.4 % (9.3-17.3); White Blood Count 5.1 T/CUMM (4-12)
[2021-10-02 07:08] LABS: Calcium 8.6 MG/DL (8.5-10.1); Osmolality,Calculated 271.1 MOS/KG (273-304); Potassium 3.9 MMOL/L (3.5-5.1)
[2021-10-02] MEDS: FUROSEMIDE 40 MG/4 ML VIAL IV SCH (10:09)
[2021-10-02] MEDS: DOCUSATE SODIUM 100 MG CAPSULE PO SCH ×2 (10:09→21:26)
[2021-10-02] MEDS: PROPRANOLOL 40 MG TABLET PO SCH ×3 (10:09→21:25)
[2021-10-02] MEDS: PANTOPRAZOLE 40 MG TABLET PO SCH (10:10)
[2021-10-02] MEDS: BUDESONIDE/FORMOTEROL 160-4.5 INHALER 6 GM INH SCH ×3 (10:10→21:48)
[2021-10-02] MEDS: SPIRONOLACTONE 50 MG TABLET PO SCH ×3 (10:10→21:26)
[2021-10-02] MEDS ORDERED: BISACODYL 10 MG SUPP RECTAL ONE (11:00)
[2021-10-02] MEDS: PSYLLIUM POWDER 3.7 GM/PACK PO SCH ×2 (12:23→21:25)
[2021-10-02] MEDS: ATORVASTATIN 40 MG TABLET PO SCH (21:26)
[2021-10-02] MEDS: TAMSULOSIN 0.4 MG CAPSULE PO SCH (21:26)
[2021-10-02] MEDS: CLOPIDOGREL 75 MG TABLET PO SCH (21:36)
[2021-10-03] MEDS: ALBUTEROL/IPRATROPIUM 3 ML NEB RESP TX SCH ×4 (00:45→21:10)
[2021-10-03 05:26] LABS: Basophils % 0.6 % (0.0-0.8); Eosinophils # 0.1 10*3/uL (0.0-0.87); Eosinophils % 0.9 % (0.00-10.9); Hematocrit 34.9 VOL% (35.7-47.0); Hemoglobin 10.6 GM/DL (12.0-16.0); Immature Granulocytes % 0.6 %; Immature Granulocytes Absolute 0.03 #; Lymphocytes # 1.3 10*3/uL (1.4-4.0); Lymphocytes % 23.5 % (21.3-54.2); Mean Corpuscular HGB Conc 30.4 GM/DL (32-36); Mean Corpuscular Volume 85.5 FL (87-102); Mean Platelet Volume 9.6 FL (9.6-12.0); Monocytes % 11.1 % (1.7-12.7); Neutrophils % 63.3 % (38.7-73.9); Platelet Count 174 T/CUMM (130-400); Red Blood Count 4.08 MC/CUMM (3.8-5.5); Red Cell Distribution Width 17.4 % (9.3-17.3); White Blood Count 5.3 T/CUMM (4-12)
[2021-10-03 05:51] LABS: Calcium 8.5 MG/DL (8.5-10.1); Osmolality,Calculated 270.2 MOS/KG (273-304); Potassium 3.8 MMOL/L (3.5-5.1)
[2021-10-03] MEDS: PANTOPRAZOLE 40 MG TABLET PO SCH (09:08)
[2021-10-03] MEDS: PROPRANOLOL 40 MG TABLET PO SCH ×3 (09:08→21:52)
[2021-10-03] MEDS: SPIRONOLACTONE 50 MG TABLET PO SCH ×3 (09:08→21:52)
[2021-10-03] MEDS: DOCUSATE SODIUM 100 MG CAPSULE PO SCH ×2 (09:09→21:52)
[2021-10-03] MEDS ORDERED: LIDOCAINE 2% TOP JELLY 20 ML VIAL INTRAURETH ONE (09:12)
[2021-10-03] MEDS: PSYLLIUM POWDER 3.7 GM/PACK PO SCH ×2 (09:13→21:52)
[2021-10-03] MEDS: FUROSEMIDE 40 MG/4 ML VIAL IV SCH (09:17)
[2021-10-03] MEDS: BUDESONIDE/FORMOTEROL 160-4.5 INHALER 6 GM INH SCH ×2 (10:29→22:42)
[2021-10-03] MEDS: ATORVASTATIN 40 MG TABLET PO SCH (21:52)
[2021-10-03] MEDS: TAMSULOSIN 0.4 MG CAPSULE PO SCH (21:52)
[2021-10-04] MEDS: ALBUTEROL/IPRATROPIUM 3 ML NEB RESP TX SCH ×4 (01:25→19:22)
[2021-10-04 05:29] LABS: Hematocrit 35.4 VOL% (35.7-47.0); Hemoglobin 10.8 GM/DL (12.0-16.0); Mean Corpuscular HGB Conc 30.5 GM/DL (32-36); Mean Corpuscular Volume 84.9 FL (87-102); Red Blood Count 4.17 MC/CUMM (3.8-5.5); Red Cell Distribution Width 17.4 % (9.3-17.3); White Blood Count 5.7 T/CUMM (4-12)
[2021-10-04 05:30] LABS: Basophils % 0.5 % (0.0-0.8); Eosinophils # 0.1 10*3/uL (0.0-0.87); Eosinophils % 1.1 % (0.00-10.9); Immature Granulocytes % 1.2 %; Immature Granulocytes Absolute 0.07 #; Lymphocytes # 1.4 10*3/uL (1.4-4.0); Lymphocytes % 24.6 % (21.3-54.2); Monocytes % 11.8 % (1.7-12.7); Neutrophils % 60.8 % (38.7-73.9); Platelet Count 177 T/CUMM (130-400)
[2021-10-04 05:54] LABS: Calcium 8.9 MG/DL (8.5-10.1); Osmolality,Calculated 267.5 MOS/KG (273-304)
[2021-10-04] MEDS: SPIRONOLACTONE 50 MG TABLET PO SCH ×4 (10:44→21:03)
[2021-10-04] MEDS: PROPRANOLOL 40 MG TABLET PO SCH ×4 (10:44→21:03)
[2021-10-04] MEDS: PANTOPRAZOLE 40 MG TABLET PO SCH (10:45)
[2021-10-04] MEDS: DOCUSATE SODIUM 100 MG CAPSULE PO SCH ×2 (10:45→21:04)
[2021-10-04] MEDS: FUROSEMIDE 40 MG/4 ML VIAL IV SCH (10:45)
[2021-10-04] MEDS: PSYLLIUM POWDER 3.7 GM/PACK PO SCH ×2 (10:45→21:04)
[2021-10-04] MEDS: BUDESONIDE/FORMOTEROL 160-4.5 INHALER 6 GM INH SCH ×2 (10:45→21:05)
[2021-10-04] MEDS: NICOTINE 14 MG/24 HR PATCH TRANSDERM SCH (11:56)
[2021-10-04] MEDS: ATORVASTATIN 40 MG TABLET PO SCH (21:03)
[2021-10-04] MEDS: TAMSULOSIN 0.4 MG CAPSULE PO SCH (21:03)
[2021-10-05] MEDS: ALBUTEROL/IPRATROPIUM 3 ML NEB RESP TX SCH ×4 (00:15→19:25)
[2021-10-05 05:35] LABS: Basophils % 0.6 % (0.0-0.8); Eosinophils # 0.1 10*3/uL (0.0-0.87); Eosinophils % 1.2 % (0.00-10.9); Hemoglobin 10.7 GM/DL (12.0-16.0); Immature Granulocytes % 0.6 %; Immature Granulocytes Absolute 0.03 #; Lymphocytes # 1.4 10*3/uL (1.4-4.0); Lymphocytes % 27.6 % (21.3-54.2); Mean Corpuscular HGB Conc 30.6 GM/DL (32-36); Mean Corpuscular Volume 84.7 FL (87-102); Mean Platelet Volume 9.3 FL (9.6-12.0); Monocytes % 11.8 % (1.7-12.7); Neutrophils % 58.2 % (38.7-73.9); Platelet Count 161 T/CUMM (130-400); Red Blood Count 4.13 MC/CUMM (3.8-5.5); Red Cell Distribution Width 17.5 % (9.3-17.3); White Blood Count 5.2 T/CUMM (4-12)
[2021-10-05 05:55] LABS: Albumin 2.9 G/DL (3.4-5.0); Bilirubin,Total 1.2 MG/DL (0.20-1.00); Calcium 8.7 MG/DL (8.5-10.1); Osmolality,Calculated 270.2 MOS/KG (273-304); Potassium 4.1 MMOL/L (3.5-5.1); Total Protein 6.3 G/DL (6.4-8.2)
[2021-10-05] MEDS: PSYLLIUM POWDER 3.7 GM/PACK PO SCH ×2 (08:41→21:43)
[2021-10-05] MEDS: NICOTINE 14 MG/24 HR PATCH TRANSDERM SCH (08:42)
[2021-10-05] MEDS: PANTOPRAZOLE 40 MG TABLET PO SCH (08:42)
[2021-10-05] MEDS: SPIRONOLACTONE 50 MG TABLET PO SCH ×4 (08:42→21:43)
[2021-10-05] MEDS: FUROSEMIDE 40 MG/4 ML VIAL IV SCH (08:44)
[2021-10-05] MEDS: PROPRANOLOL 40 MG TABLET PO SCH ×3 (08:45→21:42)
[2021-10-05] MEDS: BUDESONIDE/FORMOTEROL 160-4.5 INHALER 6 GM INH SCH ×2 (08:45→21:43)
[2021-10-05] MEDS: DOCUSATE SODIUM 100 MG CAPSULE PO SCH ×2 (08:45→21:29)
[2021-10-05] MEDS: ATORVASTATIN 40 MG TABLET PO SCH (21:42)
[2021-10-05] MEDS: TAMSULOSIN 0.4 MG CAPSULE PO SCH (21:42)
[2021-10-06] MEDS: ALBUTEROL/IPRATROPIUM 3 ML NEB RESP TX SCH ×4 (00:25→19:14)
[2021-10-06 05:48] LABS: Basophils % 0.8 % (0.0-0.8); Eosinophils # 0.1 10*3/uL (0.0-0.87); Eosinophils % 1.6 % (0.00-10.9); Hemoglobin 10.2 GM/DL (12.0-16.0); Immature Granulocytes % 0.8 %; Immature Granulocytes Absolute 0.04 #; Lymphocytes # 1.3 10*3/uL (1.4-4.0); Mean Corpuscular Volume 86.1 FL (87-102); Mean Platelet Volume 9.8 FL (9.6-12.0); Monocytes % 14.6 % (1.7-12.7); Neutrophils % 56.2 % (38.7-73.9); Platelet Count 173 T/CUMM (130-400); Red Blood Count 3.95 MC/CUMM (3.8-5.5); Red Cell Distribution Width 17.5 % (9.3-17.3); White Blood Count 5.1 T/CUMM (4-12)
[2021-10-06 06:35] LABS: Hypochromasia 2+; Platelet Estimate Adequate
[2021-10-06] MEDS: PANTOPRAZOLE 40 MG TABLET PO SCH (09:17)
[2021-10-06] MEDS: FUROSEMIDE 40 MG/4 ML VIAL IV SCH (09:18)
[2021-10-06] MEDS: SPIRONOLACTONE 50 MG TABLET PO SCH ×3 (09:18→21:01)
[2021-10-06] MEDS: PROPRANOLOL 40 MG TABLET PO SCH ×3 (09:18→22:59)
[2021-10-06] MEDS: DOCUSATE SODIUM 100 MG CAPSULE PO SCH ×2 (09:19→21:02)
[2021-10-06] MEDS: PSYLLIUM POWDER 3.7 GM/PACK PO SCH ×2 (09:19→21:03)
[2021-10-06] MEDS: BUDESONIDE/FORMOTEROL 160-4.5 INHALER 6 GM INH SCH ×2 (09:20→21:04)
[2021-10-06] MEDS: NICOTINE 14 MG/24 HR PATCH TRANSDERM SCH (09:20)
[2021-10-06] MEDS: ATORVASTATIN 40 MG TABLET PO SCH (21:01)
[2021-10-06] MEDS: TAMSULOSIN 0.4 MG CAPSULE PO SCH (21:02)
[2021-10-07] MEDS: ALBUTEROL/IPRATROPIUM 3 ML NEB RESP TX SCH ×3 (01:33→13:45)
[2021-10-07] MEDS: SPIRONOLACTONE 50 MG TABLET PO SCH (10:39)
[2021-10-07] MEDS: NICOTINE 14 MG/24 HR PATCH TRANSDERM SCH (10:40)
[2021-10-07] MEDS: PROPRANOLOL 40 MG TABLET PO SCH (10:41)
[2021-10-07] MEDS: FUROSEMIDE 40 MG/4 ML VIAL IV SCH (10:41)
[2021-10-07] MEDS: PANTOPRAZOLE 40 MG TABLET PO SCH (10:41)
[2021-10-07] MEDS: BUDESONIDE/FORMOTEROL 160-4.5 INHALER 6 GM INH SCH (10:45)
[2021-10-07] MEDS: DOCUSATE SODIUM 100 MG CAPSULE PO SCH (10:46)
[2021-10-07] MEDS: PSYLLIUM POWDER 3.7 GM/PACK PO SCH (10:46)
[2021-10-07 12:11] VITALS: BP 108/71
== END 2021-10-07 17:00 | disposition home or self-care (01) | DRG 441 ==
LOC: N.3E 14:02
PROVIDERS: ADMIT Family Medicine; ATTEND Family Medicine

== ENCOUNTER 2022-01-29 12:47 | Inpatient (IN) ==
[2022-01-29] MEDS ORDERED: ONDANSETRON 4 MG/2 ML VIAL IV PRN (17:16)
[2022-01-29] MEDS ORDERED: ACETAMINOPHEN 325 MG TABLET PO PRN (17:16)
[2022-01-29 18:20] LABS: Albumin 2.9 G/DL (3.4-5.0); Bilirubin,Total 1.6 MG/DL (0.20-1.00); Calcium 8.7 MG/DL (8.5-10.1); Osmolality,Calculated 263.7 MOS/KG (273-304); Potassium 4.4 MMOL/L (3.5-5.1); Total Protein 7.5 G/DL (6.4-8.2)
[2022-01-29 18:28] LABS: Basophils % 0.3 % (0.0-0.8); Eosinophils % 0.3 % (0.00-10.9); Hematocrit 40.7 VOL% (35.7-47.0); Hemoglobin 12.2 GM/DL (12.0-16.0); Immature Granulocytes % 0.5 %; Immature Granulocytes Absolute 0.03 #; Mean Corpuscular Volume 81.2 FL (87-102); Mean Platelet Volume 9.2 FL (9.6-12.0); Monocytes % 11.3 % (1.7-12.7); Neutrophils % 72.6 % (38.7-73.9); Platelet Count 258 T/CUMM (130-400); Red Blood Count 5.01 MC/CUMM (3.8-5.5); Red Cell Distribution Width 20.5 % (9.3-17.3); White Blood Count 6.6 T/CUMM (4-12)
[2022-01-29] MEDS: DUTASTERIDE 0.5 MG CAPSULE PO SCH (23:56)
[2022-01-29] MEDS: SPIRONOLACTONE 50 MG TABLET PO SCH (23:56)
[2022-01-29] MEDS: APIXABAN 2.5 MG TABLET PO SCH (23:56)
[2022-01-29] MEDS: ATORVASTATIN 40 MG TABLET PO SCH (23:57)
[2022-01-29] MEDS: DOCUSATE SODIUM 100 MG CAPSULE PO SCH (23:57)
[2022-01-30] MEDS: PROPRANOLOL 40 MG TABLET PO SCH ×4 (00:01→22:39)
[2022-01-30] MEDS: DEXTROSE 5% NACL 0.45% 1,000 ML IV SCH ×3 (00:04→23:38)
[2022-01-30 05:35] LABS: Basophils % 0.5 % (0.0-0.8); Eosinophils % 0.4 % (0.00-10.9); Hematocrit 35.1 VOL% (35.7-47.0); Hemoglobin 10.8 GM/DL (12.0-16.0); Immature Granulocytes % 0.5 %; Immature Granulocytes Absolute 0.03 #; Lymphocytes # 0.9 10*3/uL (1.4-4.0); Lymphocytes % 15.5 % (21.3-54.2); Mean Corpuscular HGB Conc 30.8 GM/DL (32-36); Mean Corpuscular Volume 80.1 FL (87-102); Mean Platelet Volume 9.4 FL (9.6-12.0); Monocytes % 13.2 % (1.7-12.7); Neutrophils % 69.9 % (38.7-73.9); Platelet Count 218 T/CUMM (130-400); Red Blood Count 4.38 MC/CUMM (3.8-5.5); Red Cell Distribution Width 19.8 % (9.3-17.3); White Blood Count 5.6 T/CUMM (4-12)
[2022-01-30 06:29] LABS: Albumin 2.4 G/DL (3.4-5.0); Bilirubin,Total 1.6 MG/DL (0.20-1.00); Calcium 8.6 MG/DL (8.5-10.1); Osmolality,Calculated 258.9 MOS/KG (273-304); Potassium 4.2 MMOL/L (3.5-5.1); Risk Ratio 5.79; Total Protein 6.5 G/DL (6.4-8.2)
[2022-01-30] MEDS ORDERED: AZITHROMYCIN 250 MG TABLET PO ONE (09:00)
[2022-01-30] MEDS ORDERED: TAMSULOSIN 0.4 MG CAPSULE PO SCH (09:00)
[2022-01-30] MEDS: PANTOPRAZOLE 40 MG TABLET PO SCH (10:21)
[2022-01-30] MEDS: SPIRONOLACTONE 50 MG TABLET PO SCH ×3 (10:22→22:39)
[2022-01-30] MEDS: DOCUSATE SODIUM 100 MG CAPSULE PO SCH ×2 (10:22→22:40)
[2022-01-30] MEDS: ALBUTEROL/IPRATROPIUM 3 ML NEB RESP TX SCH ×4 (10:28→23:55)
[2022-01-30] MEDS: APIXABAN 2.5 MG TABLET PO SCH ×2 (11:21→22:41)
[2022-01-30] MEDS: CLOPIDOGREL 75 MG TABLET PO SCH (11:21)
[2022-01-30] MEDS: cefTRIAXone 1,000 MG in SODIUM CHLORIDE 0.9% 100 ML IV SCH (14:52)
[2022-01-30 15:06] LABS: Glucose,Urine (UA) Negative (Negative); Ketones,Urine Negative (Negative); Nitrite,Urine Positive (Negative); Protein,Urine Negative; Urine Appearance Clear (Clear); Urine Color Yellow (Yellow); Urine Specific Gravity 1.015 (1.001-1.035)
[2022-01-30 15:07] LABS: Bilirubin,Urine Negative (Negative); Blood, Urine Negative (Negative)
[2022-01-30] MEDS: FUROSEMIDE 40 MG/4 ML VIAL IV SCH (17:27)
[2022-01-30] MEDS: ATORVASTATIN 40 MG TABLET PO SCH (22:41)
[2022-01-30] MEDS: DUTASTERIDE 0.5 MG CAPSULE PO SCH (22:41)
[2022-01-31] MEDS: ALBUTEROL/IPRATROPIUM 3 ML NEB RESP TX SCH ×6 (03:32→23:10)
[2022-01-31 04:58] LABS: Basophils % 0.3 % (0.0-0.8); Hematocrit 33.9 VOL% (35.7-47.0); Hemoglobin 10.5 GM/DL (12.0-16.0); Immature Granulocytes % 0.5 %; Immature Granulocytes Absolute 0.03 #; Lymphocytes # 0.9 10*3/uL (1.4-4.0); Lymphocytes % 14.6 % (21.3-54.2); Mean Corpuscular Volume 79.6 FL (87-102); Mean Platelet Volume 9.4 FL (9.6-12.0); Monocytes % 14.4 % (1.7-12.7); Neutrophils % 70.2 % (38.7-73.9); Platelet Count 216 T/CUMM (130-400); Red Blood Count 4.26 MC/CUMM (3.8-5.5); Red Cell Distribution Width 19.8 % (9.3-17.3); White Blood Count 6.4 T/CUMM (4-12)
[2022-01-31 05:19] LABS: Albumin 2.3 G/DL (3.4-5.0); Bilirubin,Total 1.4 MG/DL (0.20-1.00); Calcium 8.6 MG/DL (8.5-10.1); Osmolality,Calculated 257.2 MOS/KG (273-304); Potassium 4.2 MMOL/L (3.5-5.1); Total Protein 6.3 G/DL (6.4-8.2)
[2022-01-31] MEDS: FUROSEMIDE 40 MG/4 ML VIAL IV SCH ×2 (09:03→15:48)
[2022-01-31] MEDS: MULTIVITAMIN (CENTRUM) TABLET PO SCH (09:04)
[2022-01-31] MEDS: cefTRIAXone 1,000 MG in SODIUM CHLORIDE 0.9% 100 ML IV SCH (09:04)
[2022-01-31] MEDS: AZITHROMYCIN 250 MG TABLET PO SCH (09:04)
[2022-01-31] MEDS: PROPRANOLOL 40 MG TABLET PO SCH ×3 (09:04→20:56)
[2022-01-31] MEDS: DOCUSATE SODIUM 100 MG CAPSULE PO SCH ×2 (09:04→20:56)
[2022-01-31] MEDS: SPIRONOLACTONE 50 MG TABLET PO SCH ×3 (09:04→20:56)
[2022-01-31] MEDS: PANTOPRAZOLE 40 MG TABLET PO SCH (09:05)
[2022-01-31] MEDS: ENOXAPARIN 30 MG/0.3 ML SYRINGE SUBCUT SCH (17:40)
[2022-01-31] MEDS: MAGNESIUM HYDROXIDE SUSP 30 ML UDCUP PO PRN (19:13)
[2022-01-31] MEDS: DEXTROSE 5% NACL 0.45% 1,000 ML IV SCH (19:28)
[2022-01-31] MEDS: DUTASTERIDE 0.5 MG CAPSULE PO SCH (20:56)
[2022-01-31] MEDS: ATORVASTATIN 40 MG TABLET PO SCH (20:56)
[2022-02-01] MEDS: ALBUTEROL/IPRATROPIUM 3 ML NEB RESP TX SCH ×6 (03:13→19:37)
[2022-02-01] MEDS: DEXTROSE 5% NACL 0.45% 1,000 ML IV SCH (05:23)
[2022-02-01 05:36] LABS: Basophils % 0.6 % (0.0-0.8); Eosinophils % 0.5 % (0.00-10.9); Hematocrit 35.7 VOL% (35.7-47.0); Immature Granulocytes % 0.8 %; Immature Granulocytes Absolute 0.05 #; Lymphocytes # 1.1 10*3/uL (1.4-4.0); Lymphocytes % 16.3 % (21.3-54.2); Mean Corpuscular HGB Conc 30.8 GM/DL (32-36); Mean Corpuscular Volume 78.3 FL (87-102); Mean Platelet Volume 9.4 FL (9.6-12.0); Monocytes % 12.6 % (1.7-12.7); Neutrophils % 69.2 % (38.7-73.9); Platelet Count 226 T/CUMM (130-400); Red Blood Count 4.56 MC/CUMM (3.8-5.5); Red Cell Distribution Width 19.9 % (9.3-17.3); White Blood Count 6.6 T/CUMM (4-12)
[2022-02-01 06:02] LABS: Albumin 2.4 G/DL (3.4-5.0); Bilirubin,Total 1.2 MG/DL (0.20-1.00); Calcium 8.9 MG/DL (8.5-10.1); Osmolality,Calculated 255.2 MOS/KG (273-304); Potassium 4.1 MMOL/L (3.5-5.1); Total Protein 6.7 G/DL (6.4-8.2)
[2022-02-01] MEDS: DOCUSATE SODIUM 100 MG CAPSULE PO SCH ×2 (11:38→21:23)
[2022-02-01] MEDS: MULTIVITAMIN (CENTRUM) TABLET PO SCH (11:38)
[2022-02-01] MEDS: SPIRONOLACTONE 50 MG TABLET PO SCH ×3 (11:38→21:24)
[2022-02-01] MEDS: PANTOPRAZOLE 40 MG TABLET PO SCH (11:38)
[2022-02-01] MEDS: AZITHROMYCIN 250 MG TABLET PO SCH (11:38)
[2022-02-01] MEDS: PROPRANOLOL 40 MG TABLET PO SCH ×3 (11:38→21:23)
[2022-02-01] MEDS: cefTRIAXone 1,000 MG in SODIUM CHLORIDE 0.9% 100 ML IV SCH (11:39)
[2022-02-01] MEDS: FUROSEMIDE 40 MG/4 ML VIAL IV SCH ×2 (11:46→16:15)
[2022-02-01] MEDS: NYSTATIN 500,000 UNIT/5 ML UDCUP SWISH/SWAL SCH ×3 (12:27→21:23)
[2022-02-01] MEDS: ENOXAPARIN 30 MG/0.3 ML SYRINGE SUBCUT SCH (16:19)
[2022-02-01] MEDS: MAGNESIUM HYDROXIDE SUSP 30 ML UDCUP PO PRN (18:10)
[2022-02-01] MEDS: DUTASTERIDE 0.5 MG CAPSULE PO SCH (21:23)
[2022-02-01] MEDS: ATORVASTATIN 40 MG TABLET PO SCH (21:23)
[2022-02-02] MEDS: ALBUTEROL/IPRATROPIUM 3 ML NEB RESP TX SCH ×6 (03:15→23:20)
[2022-02-02] MEDS: DEXTROSE 5% NACL 0.45% 1,000 ML IV SCH (09:14)
[2022-02-02] MEDS: NYSTATIN 500,000 UNIT/5 ML UDCUP SWISH/SWAL SCH ×4 (09:19→20:58)
[2022-02-02] MEDS: DOCUSATE SODIUM 100 MG CAPSULE PO SCH ×2 (09:19→20:59)
[2022-02-02] MEDS: MULTIVITAMIN (CENTRUM) TABLET PO SCH (09:20)
[2022-02-02] MEDS: PANTOPRAZOLE 40 MG TABLET PO SCH (09:20)
[2022-02-02] MEDS: AZITHROMYCIN 250 MG TABLET PO SCH (09:20)
[2022-02-02] MEDS: FLUCONAZOLE 100 MG TABLET PO SCH (09:20)
[2022-02-02] MEDS: SPIRONOLACTONE 50 MG TABLET PO SCH ×3 (09:20→20:59)
[2022-02-02] MEDS: PROPRANOLOL 40 MG TABLET PO SCH ×3 (09:20→20:58)
[2022-02-02] MEDS: cefTRIAXone 1,000 MG in SODIUM CHLORIDE 0.9% 100 ML IV SCH (09:21)
[2022-02-02] MEDS: FUROSEMIDE 40 MG/4 ML VIAL IV SCH ×2 (09:24→17:17)
[2022-02-02] MEDS: ENOXAPARIN 30 MG/0.3 ML SYRINGE SUBCUT SCH (17:40)
[2022-02-02] MEDS: ATORVASTATIN 40 MG TABLET PO SCH (20:58)
[2022-02-02] MEDS: DUTASTERIDE 0.5 MG CAPSULE PO SCH (20:58)
[2022-02-02] MEDS: ZALEPLON 5 MG CAPSULE PO PRN (20:59)
[2022-02-03] MEDS: ALBUTEROL/IPRATROPIUM 3 ML NEB RESP TX SCH ×6 (02:15→23:35)
[2022-02-03] MEDS: ZALEPLON 5 MG CAPSULE PO PRN (02:19)
[2022-02-03] MEDS: AZITHROMYCIN 250 MG TABLET PO SCH (10:17)
[2022-02-03] MEDS: NYSTATIN 500,000 UNIT/5 ML UDCUP SWISH/SWAL SCH ×4 (10:17→21:24)
[2022-02-03] MEDS: PANTOPRAZOLE 40 MG TABLET PO SCH (10:17)
[2022-02-03] MEDS: DOCUSATE SODIUM 100 MG CAPSULE PO SCH ×2 (10:17→21:24)
[2022-02-03] MEDS: MULTIVITAMIN (CENTRUM) TABLET PO SCH (10:17)
[2022-02-03] MEDS: CLOPIDOGREL 75 MG TABLET PO SCH (10:17)
[2022-02-03] MEDS: PROPRANOLOL 40 MG TABLET PO SCH ×3 (10:17→21:24)
[2022-02-03] MEDS: FLUCONAZOLE 100 MG TABLET PO SCH (10:18)
[2022-02-03] MEDS: SPIRONOLACTONE 50 MG TABLET PO SCH ×3 (10:18→21:25)
[2022-02-03] MEDS: FUROSEMIDE 40 MG/4 ML VIAL IV SCH ×2 (10:18→15:17)
[2022-02-03] MEDS: cefTRIAXone 1,000 MG in SODIUM CHLORIDE 0.9% 100 ML IV SCH (10:18)
[2022-02-03] MEDS: APIXABAN 2.5 MG TABLET PO SCH ×2 (10:35→21:32)
[2022-02-03] MEDS: ENOXAPARIN 30 MG/0.3 ML SYRINGE SUBCUT SCH (15:18)
[2022-02-03] MEDS: DEXTROSE 5% NACL 0.45% 1,000 ML IV SCH (20:40)
[2022-02-03] MEDS: DUTASTERIDE 0.5 MG CAPSULE PO SCH (21:24)
[2022-02-03] MEDS: ATORVASTATIN 40 MG TABLET PO SCH (21:25)
[2022-02-04] MEDS: DEXTROSE 5% NACL 0.45% 1,000 ML IV SCH ×3 (02:46→21:21)
[2022-02-04] MEDS: ALBUTEROL/IPRATROPIUM 3 ML NEB RESP TX SCH ×6 (02:55→23:40)
[2022-02-04 06:10] LABS: Basophils % 0.5 % (0.0-0.8); Eosinophils # 0.1 10*3/uL (0.0-0.87); Eosinophils % 0.9 % (0.00-10.9); Hematocrit 34.6 VOL% (35.7-47.0); Hemoglobin 10.7 GM/DL (12.0-16.0); Immature Granulocytes % 0.7 %; Immature Granulocytes Absolute 0.04 #; Lymphocytes # 1.1 10*3/uL (1.4-4.0); Lymphocytes % 18.8 % (21.3-54.2); Mean Corpuscular HGB Conc 30.9 GM/DL (32-36); Mean Corpuscular Volume 78.8 FL (87-102); Mean Platelet Volume 8.9 FL (9.6-12.0); Monocytes % 13.7 % (1.7-12.7); Neutrophils % 65.4 % (38.7-73.9); Platelet Count 186 T/CUMM (130-400); Red Blood Count 4.39 MC/CUMM (3.8-5.5); Red Cell Distribution Width 19.5 % (9.3-17.3); White Blood Count 5.8 T/CUMM (4-12)
[2022-02-04 06:25] LABS: Calcium 8.7 MG/DL (8.5-10.1); Osmolality,Calculated 257.1 MOS/KG (273-304); Potassium 3.7 MMOL/L (3.5-5.1)
[2022-02-04 06:31] LABS: Hypochromia 1+; Lymphocytes 18 % (20-55); Microcytosis 1+; Platelet Estimate Adequate; Segmented Neutrophils 72 % (50-85); Total Cells Counted 100
[2022-02-04] MEDS: FUROSEMIDE 40 MG/4 ML VIAL IV SCH ×2 (09:26→15:44)
[2022-02-04] MEDS: PANTOPRAZOLE 40 MG TABLET PO SCH (09:28)
[2022-02-04] MEDS: APIXABAN 2.5 MG TABLET PO SCH (09:28)
[2022-02-04] MEDS: NYSTATIN 500,000 UNIT/5 ML UDCUP SWISH/SWAL SCH ×4 (09:28→21:13)
[2022-02-04] MEDS: CLOPIDOGREL 75 MG TABLET PO SCH (09:28)
[2022-02-04] MEDS: PROPRANOLOL 40 MG TABLET PO SCH ×3 (09:29→21:12)
[2022-02-04] MEDS: SPIRONOLACTONE 50 MG TABLET PO SCH ×3 (09:29→21:12)
[2022-02-04] MEDS: DOCUSATE SODIUM 100 MG CAPSULE PO SCH ×2 (09:29→21:19)
[2022-02-04] MEDS: FLUCONAZOLE 100 MG TABLET PO SCH (09:29)
[2022-02-04] MEDS: MULTIVITAMIN (CENTRUM) TABLET PO SCH (09:29)
[2022-02-04] MEDS: cefTRIAXone 1,000 MG in SODIUM CHLORIDE 0.9% 100 ML IV SCH (09:29)
[2022-02-04 09:37] LABS: INR 1.2; PT Patient Result 12.9 SECS (10.5-12.0)
[2022-02-04] MEDS: POLYETHYLENE GLYCOL POWDER 17 GM PACK PO SCH ×2 (15:44→21:13)
[2022-02-04] MEDS: ENOXAPARIN 30 MG/0.3 ML SYRINGE SUBCUT SCH (15:46)
[2022-02-04] MEDS: ATORVASTATIN 40 MG TABLET PO SCH (21:12)
[2022-02-04] MEDS: DUTASTERIDE 0.5 MG CAPSULE PO SCH (21:12)
[2022-02-05] MEDS: ALBUTEROL/IPRATROPIUM 3 ML NEB RESP TX SCH ×6 (03:55→22:50)
[2022-02-05 05:24] LABS: Basophils % 0.3 % (0.0-0.8); Eosinophils # 0.1 10*3/uL (0.0-0.87); Eosinophils % 0.9 % (0.00-10.9); Hematocrit 34.8 VOL% (35.7-47.0); Hemoglobin 10.5 GM/DL (12.0-16.0); Immature Granulocytes % 0.5 %; Immature Granulocytes Absolute 0.03 #; Lymphocytes # 1.1 10*3/uL (1.4-4.0); Lymphocytes % 19.2 % (21.3-54.2); Mean Corpuscular HGB Conc 30.2 GM/DL (32-36); Mean Corpuscular Volume 79.8 FL (87-102); Mean Platelet Volume 9.6 FL (9.6-12.0); Monocytes % 15.2 % (1.7-12.7); Neutrophils % 63.9 % (38.7-73.9); Platelet Count 200 T/CUMM (130-400); Red Blood Count 4.36 MC/CUMM (3.8-5.5); Red Cell Distribution Width 19.5 % (9.3-17.3); White Blood Count 5.8 T/CUMM (4-12)
[2022-02-05 05:44] LABS: Calcium 8.5 MG/DL (8.5-10.1); Osmolality,Calculated 264.7 MOS/KG (273-304); Potassium 3.7 MMOL/L (3.5-5.1)
[2022-02-05 06:04] LABS: Anisocytosis 1+; Band Neutrophils 6 % (0-10); Eosinophils 3 % (0-10); Hypochromia 1+; Lymphocytes 16 % (20-55); Ovalocytes Few; Platelet Estimate Normal; Segmented Neutrophils 60 % (50-85); Target Cells Few; Total Cells Counted 100
[2022-02-05] MEDS: POLYETHYLENE GLYCOL POWDER 17 GM PACK PO SCH ×2 (08:35→22:17)
[2022-02-05] MEDS: FUROSEMIDE 40 MG/4 ML VIAL IV SCH ×2 (08:35→15:58)
[2022-02-05] MEDS: NYSTATIN 500,000 UNIT/5 ML UDCUP SWISH/SWAL SCH ×4 (08:36→22:18)
[2022-02-05] MEDS: DOCUSATE SODIUM 100 MG CAPSULE PO SCH ×2 (08:36→22:17)
[2022-02-05] MEDS: MULTIVITAMIN (CENTRUM) TABLET PO SCH (08:37)
[2022-02-05] MEDS: SPIRONOLACTONE 50 MG TABLET PO SCH ×3 (08:37→22:18)
[2022-02-05] MEDS: PROPRANOLOL 40 MG TABLET PO SCH ×3 (08:37→22:18)
[2022-02-05] MEDS: PANTOPRAZOLE 40 MG TABLET PO SCH (08:37)
[2022-02-05] MEDS: cefTRIAXone 1,000 MG in SODIUM CHLORIDE 0.9% 100 ML IV SCH (08:37)
[2022-02-05] MEDS ORDERED: BISACODYL 10 MG SUPP RECTAL ONE (13:00)
[2022-02-05] MEDS: ENOXAPARIN 30 MG/0.3 ML SYRINGE SUBCUT SCH (16:54)
[2022-02-05] MEDS: DEXTROSE 5% NACL 0.45% 1,000 ML IV SCH (22:15)
[2022-02-05] MEDS: DUTASTERIDE 0.5 MG CAPSULE PO SCH (22:17)
[2022-02-05] MEDS: ATORVASTATIN 40 MG TABLET PO SCH (22:18)
[2022-02-06 06:34] LABS: Eosinophils % 0.2 % (0.00-10.9); Hematocrit 34.1 VOL% (35.7-47.0); Hemoglobin 10.4 GM/DL (12.0-16.0); Immature Granulocytes % 0.8 %; Immature Granulocytes Absolute 0.05 #; Lymphocytes # 0.9 10*3/uL (1.4-4.0); Lymphocytes % 13.7 % (21.3-54.2); Mean Corpuscular HGB Conc 30.5 GM/DL (32-36); Mean Corpuscular Volume 79.1 FL (87-102); Mean Platelet Volume 9.7 FL (9.6-12.0); Monocytes % 13.7 % (1.7-12.7); Neutrophils % 71.6 % (38.7-73.9); Platelet Count 194 T/CUMM (130-400); Red Blood Count 4.31 MC/CUMM (3.8-5.5); Red Cell Distribution Width 19.4 % (9.3-17.3); White Blood Count 6.6 T/CUMM (4-12)
[2022-02-06 06:54] LABS: Albumin 2.3 G/DL (3.4-5.0); Bilirubin,Total 1.5 MG/DL (0.20-1.00); Calcium 8.3 MG/DL (8.5-10.1); Osmolality,Calculated 263.8 MOS/KG (273-304); Potassium 3.9 MMOL/L (3.5-5.1); Total Protein 6.6 G/DL (6.4-8.2)
[2022-02-06] MEDS: ALBUTEROL/IPRATROPIUM 3 ML NEB RESP TX SCH (07:10)
[2022-02-06] MEDS: PROPRANOLOL 40 MG TABLET PO SCH (08:29)
[2022-02-06] MEDS: MULTIVITAMIN (CENTRUM) TABLET PO SCH (08:30)
[2022-02-06] MEDS: SPIRONOLACTONE 50 MG TABLET PO SCH (08:30)
[2022-02-06] MEDS: DOCUSATE SODIUM 100 MG CAPSULE PO SCH (08:30)
[2022-02-06] MEDS: NYSTATIN 500,000 UNIT/5 ML UDCUP SWISH/SWAL SCH (08:34)
[2022-02-06] MEDS: PANTOPRAZOLE 40 MG TABLET PO SCH (08:34)
[2022-02-06] MEDS ORDERED: CEFUROXIME 500 MG TABLET PO SCH (09:00)
[2022-02-06] MEDS ORDERED: FUROSEMIDE 40 MG TABLET PO SCH (09:00)
[2022-02-06] MEDS ORDERED: hydrALAZINE 25 MG TABLET PO SCH (09:00)
[2022-02-06] MEDS: POLYETHYLENE GLYCOL POWDER 17 GM PACK PO SCH (10:13)
[2022-02-06 11:47] VITALS: BP 122/83
== END 2022-02-06 13:00 | disposition home or self-care (01) | DRG 432 ==
LOC: N.5E 16:51
PROVIDERS: ADMIT Family Medicine; ATTEND Family Medicine